=== PATIENT | female | born 1990 | race African-American/Black ===

== ENCOUNTER 2016-07-15 07:28 | Emergency (ER) | payer OTHER, MEDICAID ==
[~2016-07-15] VITALS: Ht 149.9 cm; Wt 72.0 kg
[2016-07-15] MEDS ORDERED: IBUPROFEN 400MG TABLET PO ONE (12:00)
[2016-07-15] MEDS ORDERED: HYDROCODONE/ACETAMINOPHEN 5/325MG TABLET PO ONE (12:00)
[2016-07-15 14:19] VITALS: BP 119/74
== END 2016-07-15 14:22 | disposition home or self-care (01) ==
LOC: ER 07:49
DX: S70.11XA Contusion of right thigh, initial encounter (principal); V49.9XXA Car occupant (driver) (passenger) injured in unspecified traffic accident, initial encounter; Y93.89 Activity, other specified; Y92.89 Other specified places as the place of occurrence of the external cause; Y99.8 Other external cause status
CPT/HCPCS: 72170; 73552; 99284; Z7610